=== PATIENT | female | born 1950 | race African-American/Black ===

== ENCOUNTER 2017-04-19 16:17 | Emergency (ER) | payer OTHER ==
[~2017-04-19] VITALS: Ht 170.2 cm; Wt 95.0 kg
[2017-04-19] MEDS ORDERED: IPRATROPIUM/ALBUTEROL 0.5-3(2.5)MG/3ML NEB HHN ONE ×2 (19:00→20:45)
[2017-04-19] MEDS ORDERED: PREDNISONE 20MG TABLET PO STA (20:31)
[2017-04-19 21:38] VITALS: BP 145/81
== END 2017-04-19 21:58 | disposition home or self-care (01) ==
LOC: ER 19:46
DX: J32.9 Chronic sinusitis, unspecified (principal); H92.03 Otalgia, bilateral; J02.9 Acute pharyngitis, unspecified
CPT/HCPCS: 71010; 94640; 99283; J7512; J7620

== ENCOUNTER 2017-12-30 06:38 | Emergency (ER) | payer OTHER ==
[~2017-12-30] VITALS: Ht 167.6 cm; Wt 93.6 kg
[2017-12-30 10:55] VITALS: BP 149/77
== END 2017-12-30 11:09 | disposition home or self-care (01) ==
LOC: ER 07:57
DX: J06.9 Acute upper respiratory infection, unspecified (principal); M40.294 Other kyphosis, thoracic region
CPT/HCPCS: 71046; 87804; 99285

== ENCOUNTER 2024-04-30 06:09 | Emergency (ER) | payer MEDICARE, OTHER ==
[~2024-04-30] VITALS: Ht 167.6 cm; Wt 88.0 kg
[~2024-04-30 06:09] MED LIST: AMLO2.5T45 PO; ASPI-1497 MT; ATOR20TA MT; CLOP75TA33 PO; LOSA25TA26 PO
[2024-04-30 06:21] VITALS: O2SAT 98
[2024-04-30 08:44] LABS: BASOPHILS % 0.8 % (0.0-2.0); EOSINOPHILS % 1.8 % (0.0-5.0); HEMATOCRIT. 35.6 % (36.0-48.0); HEMOGLOBIN. 11.4 g/dL (12.0-16.0); LYMPHOCYTES % 15.1 % (20.0-50.0); MEAN CORPUSCULAR HEMOGLOBIN 29.8 pg (28.0-32.0); MEAN CORPUSCULAR HGB CONC 32.1 g/dL (31.0-37.0); MEAN CORPUSCULAR VOLUME 92.8 fL (81.0-99.0); MEAN PLATELET VOLUME 8.2 fl (7.4-10.4); NEUTROPHILS % 74.3 % (40.0-76.0); PLATELET 291 x1000/uL (130-400); RED BLOOD CELL COUNT 3.83 mill/uL (4.2-5.4); RED CELL DISTRIBUTION WIDTH 14.8 % (11.6-14.6); WHITE BLOOD COUNT 9.8 x1000/uL (4.5-11.0)
[2024-04-30 08:52] LABS: CALCIUM 10.5 mg/dL (8.7-10.4)
[2024-04-30 08:56] LABS: CREATININE 1.1 mg/dL (0.6-1.0)
[2024-04-30 09:58] LABS: ALANINE AMINOTRANSFERASE 8 IU/L (10-49); ALBUMIN 4.7 g/dL (3.2-4.8); ASPARTATE AMINOTRANSFERASE 14 IU/L (<34); BILIRUBIN TOTAL 0.3 mg/dL (0.1-1.0); PROTEIN TOTAL 7.9 g/dL (6.0-8.3)
[2024-04-30 10:04] LABS: BILIRUBIN DIRECT < 0.1 mg/dL (<=3.0)
[2024-04-30 10:58] VITALS: BP 124/67; PULSE 78; RESP 16; TEMP 36.66960; O2SAT 98
[2024-04-30] MEDS ORDERED: IBUPROFEN 800MG TABLET PO ONE (11:00)
[2024-04-30] MEDS ORDERED: IBUP-2028 MT (11:02)
== END 2024-04-30 10:58 | disposition home or self-care (01) ==
LOC: ER 06:09
DX: I87.2 Venous insufficiency (chronic) (peripheral) (principal); I10 Essential (primary) hypertension; E11.9 Type 2 diabetes mellitus without complications; Z90.710 Acquired absence of both cervix and uterus; Z98.890 Other specified postprocedural states; Z86.73 Personal history of transient ischemic attack (TIA), and cerebral infarction without residual deficits
CPT/HCPCS: 36415; 73610; 80048; 80076; 83880; 85025; 93970; 99284